=== PATIENT | female | born 1975 | race African-American/Black ===

== ENCOUNTER 2021-03-06 00:56 | Emergency (ER) | payer OTHER ==
--- OUTSIDE RECORDS SUMMARY | 2021-03-06 01:00 | XMS REPORT | Continuity of Care Document ---
:1975 Author Organization [facility] t Address [address] [place] [id number] Care Team Providers Name Role Phone Provider Primary Care Physician Unavailable Problems This patient has no known problems. Allergies, Adverse Reactions, Alerts This patient has no known allergies or adverse reactions. Social History Social Habit Start Date Stop Date Quantity Comments Source History [facility] Alcohol Std [facility] Drinks History [facility] Alcohol Binge [facility] Tobacco use and 2019-07-22 2019-07-22 Former user [place] exposure 00:00:00 00:00:00 [place] Alcohol intake 2019-07-22 2019-07-22 [facility] 00:[facility]:00 00:00:00 alcohol (finding) [facility] History [facility] 2019-07-22 2019-07-22 1 [place] Alcohol Frequency 00:00:00 00:00:[address] Alcohol Comment 2019-07-22 2019-07-22 occasionally [place] 00:00:00 00:00:00 [place] Sex Ass[birth year] At [birth year] [place] 00:00:00 00:00:00 [place] Smoking Status Start Date Stop Date Source Current every day smoker 2019-07-22 00:00:00 Brody margaret [facility] Medications This patient has no known medications. Procedures This patient has no known procedures. Plan of Care Planned Activity Planned Date Details Comments Source Future Scheduled 2021-05-07 INFLUENZA VACCINE Gabriela n [facility] Test 00:00:00 [code = INFLUENZA VACCINE] Future Scheduled 1998 Screening for [facility] 00:00:00 malignant neoplasm of cervix (procedure) [code = 352630179] Future Scheduled 1995 Hepatitis C [facility] Test 00:00:00 screening (procedure) [code = 222844037] Future Scheduled 1989 COVID-19 VACCINE (1) Brody robles [facility] Test 00:00:00 [code = COVID-19 VACCINE (1)] Encounters Start End Encounter Admission Attending Care Care Encounter Source Date/Time Date/Time Type Type Clinicians Facility Department ID 2019-10-30 2019-10-30 Emergency E [facility] [id number] [facility] 07:04:00 07:04:00 Results Test Description Test Time Test Comments Results Result Sourc e Comments SCR MAMM BILATERAL 2019-09-08 - SCR MAMM BILATERAL CAD DIGITAL 10:09:52 CAD DIGITALBILATERAL DIGITAL SCREENING MAMMOGRAM WITH CAD: 09/02/2019CLINICAL: Asymptomatic. Current mammographic images were evaluated by either a [employer] ImageChecker CAD (computer aided detection system). No prior exams were available for comparison. There are scattered fibroglandular tissues in both breasts. No suspicious mass, architectural distortion, malignant type calcification, or lymph node abnormality detected. IMPRESSION: NEGATIVEThere is no mammographic evidence of malignancy. Resume annual screening mammography in one year. Blaze Ward M.D. pl/:09/08/2019 10:09:52 Entry: - 09/08/2019 10:09:52Imaging Technologist: Divina PAUL, [facility]-RGletter sent: BIRADS 1-2 Normal Mammogram BI-RADS: 1 Negative
--- NOTE | 2021-03-06 02:49 | ER ---
Nurse's Notes [facility] Name: Rowena Rodriguez Age: 45 yrs Sex: Female : 1975 Arrival Date: 03/06/2021 Time: 01:01 Bed Waiting Private MD: Diagnosis: Presentation: 03/06 01:59 Chief complaint: Patient states: has been abx for UTI, not getting better, legs have iw been swelling , also has been having increasing pain to lower back for past month. Coronavirus screen: At this time, the client does not indicate any symptoms associated with coronavirus-19. Ebola Screen: Patient negative for fever greater than or equal to 101.5 degrees Fahrenheit, and additional compatible Ebola Virus Disease symptoms Patient denies exposure to infectious person. Patient denies travel to an Ebola-affected area in the 21 days before illness onset. No symptoms or risks identified at this time. Initial Sepsis Screen: Does the patient meet any 2 criteria? No. Patient's initial sepsis screen is negative. Does the patient have a suspected source of infection? No. Patient's initial sepsis screen is negative. Risk Assessment: Do you want to hurt yourself or someone else? Patient reports no desire to harm self or others. 01:59 Method Of Arrival: Ambulatory iw 01:59 Acuity: LAUREEN 3 iw 02:02 Onset of symptoms was January 31, 2021. iw Historical: - Allergies: 02:04 No Known Allergies; iw - Home Meds: 02:06 Metformin Oral [Active]; iw - PMHx: 02:06 Hyperlipidemia; Hypertension; Diabetes - NIDDM; iw - PSHx: 02:08 ovaries; Cholecystectomy; iw - Immunization history:: Client reports receiving the 2nd dose of the Covid vaccine. - Social history:: Smoking status: Patient reports the use of cigarette tobacco products, smokes one pack cigarettes per day. Vital Signs: 02:02 BP 140 / 97; Pulse 87; Resp 16 S; Temp 97.4; Pulse Ox 100% ; Weight 92.08 kg; Height 5 iw ft. 5 in. (165.10 cm); Pain 9/10; 02:02 Body Mass Index 33.78 (92.08 kg, 165.10 cm) iw ED Course: 01:01 Patient arrived in ED. es 01:59 Triage completed. iw 02:04 Arm band placed on. iw Administered Medications: No medications were administered Outcome: 02:49 Patient left the ED. tt3 Signatures: Komal Sorensen Irene, RN RN iw Juan Kirkpatrick tt3 Corrections: (The following items were deleted from the chart) 02:04 01:59 Chief complaint: Patient states: has been abx for UTI, not getting better, legs iw have been swelling iw 02:04 02:02 Pulse 87bpm; Resp 16bpm; Spontaneous; Pulse Ox 100%; Temp 97.4F; 92.08 kg; Height iw 5 ft. 5 in.; BMI: 33.7; Pain 9/10; iw 02:05 02:02 Onset of symptoms was March 02, 2021 iw iw
[2021-03-06 03:04] VITALS: BP 140/97; TEMP 97.4; O2SAT 100
== END 2021-03-06 02:49 | disposition left against medical advice (07) ==
LOC: ER 00:56
DX: Z53.21 Procedure and treatment not carried out due to patient leaving prior to being seen by health care provider (principal)
CPT/HCPCS: 99281